=== PATIENT | female | born 1950 | race Caucasian/White ===

== ENCOUNTER 2024-06-23 13:27 | Emergency (ER) | payer OTHER ==
[2024-06-23 13:56] VITALS: BP 153/93; PULSE 96; RESP 16; TEMP 98.6; BMI 26.1
[2024-06-23 15:38] LABS: HEMATOCRIT 47.8 % (32.4-45.2); HEMOGLOBIN 15.8 G/dL (10.7-15.3); MCH 31.5 pg (25.7-33.7); MCHC 33.1 g/dl (32.0-36.0); MEAN CELL VOLUME 95.2 fl (80-96); MEAN PLT VOLUME 8.4 fl (7.5-11.1); PLATELET COUNT 192.6 10^3/uL (134-434); RBC 5.02 10^6/uL (3.60-5.2); WHITE BLOOD COUNT 5.5 10^3/uL (4.0-10.8)
[2024-06-23 15:43] LABS: PLATELET ESTIMATE ADEQUATE
[2024-06-23 15:45] LABS: ALBUMIN 4.6 g/dl (3.4-5.0); BILIRUBIN,TOTAL 0.4 mg/dl (0.2-1); CALCIUM 10.3 mg/dl (8.5-10.1); CREATININE 1.2 mg/dl (0.6-1.3); POTASSIUM 4.2 mmol/L (3.5-5.1); TOT PROT 7.7 g/dl (6.4-8.2)
[2024-06-23 15:58] LABS: ERYTHROCYTE SEDIMENTATION RATE 13 mm/hr (0-30)
[2024-06-23] MEDS ORDERED: DALBAVANCIN HCL 500 MG VIAL (RESTRICTED TO ID ONLY) IVPB ONE (16:44)
[2024-06-23] MEDS: DALBAVANCIN HCL 1,500 MG in DEXTROSE 5%-WATER - 500 ML IVPB ONE (17:00)
== END 2024-06-23 17:38 | disposition home or self-care (01) ==
LOC: FER 13:27
DX: M79.89 Other specified soft tissue disorders (principal); L03.116 Cellulitis of left lower limb
CPT/HCPCS: 36415; 73590-TC-LT-FY; 73610-TC-LT-FY; 73630-TC-LT; 80053; 85027; 85651; 86140; 93971-TC; 96374; 99285-25; J0875

== ENCOUNTER 2024-06-29 13:45 | Emergency (ER) | payer OTHER ==
[2024-06-29 13:57] VITALS: BP 148/88; PULSE 86; RESP 18; TEMP 98.4; BMI 26.1
== END 2024-06-29 14:40 | disposition home or self-care (01) ==
LOC: FER 13:45
DX: L29.9 Pruritus, unspecified (principal)
CPT/HCPCS: 99283-25

== ENCOUNTER 2024-06-30 16:58 | Emergency (ER) | payer OTHER ==
[2024-06-30 17:11] VITALS: BP 149/92; PULSE 100; RESP 16; TEMP 97.5; BMI 26.1
[2024-06-30 18:34] LABS: HEMATOCRIT 45.8 % (32.4-45.2); HEMOGLOBIN 15.5 G/dL (10.7-15.3); MCH 32.2 pg (25.7-33.7); MCHC 33.9 g/dl (32.0-36.0); MEAN CELL VOLUME 95.1 fl (80-96); MEAN PLT VOLUME 8.1 fl (7.5-11.1); RBC 4.82 10^6/uL (3.60-5.2); RDW 13.8 % (11.6-15.6); WHITE BLOOD COUNT 6.6 10^3/uL (4.0-10.8)
[2024-06-30] MEDS ORDERED: predniSONE 20 MG TABLET (UD) ONE (18:48)
[2024-06-30] MEDS: predniSONE 20 MG TABLET (UD) PO ONE (18:55)
[2024-06-30 19:04] LABS: ALBUMIN 4.6 g/dl (3.4-5.0); ALK PHOS 109 U/L (45-117); ANION GAP 8 mmol/L (4-13); BILIRUBIN,TOTAL 0.3 mg/dl (0.2-1); CALCIUM 10.1 mg/dl (8.5-10.1); CHLORIDE 102 mmol/L (98-107); CO2 30 mmol/L (21-32); CREATININE 1.1 mg/dl (0.6-1.3); GLUCOSE,RANDOM 105 mg/dl (74-106); SGOT/AST 24 U/L (15-37); SGPT/ALT 28 U/L (7-52); SODIUM 140 mmol/L (136-145); TOT PROT 7.8 g/dl (6.4-8.2)
[2024-06-30 19:14] LABS: PLATELET ESTIMATE ADEQUATE
[2024-06-30 19:26] LABS: ERYTHROCYTE SEDIMENTATION RATE 21 mm/hr (0-30)
[2024-06-30 20:45] LABS: HIV INTERPRETATION NEGATIVE (NEGATIVE)
== END 2024-06-30 19:09 | disposition left against medical advice (07) ==
LOC: FER 16:58
DX: R21 Rash and other nonspecific skin eruption (principal); M79.89 Other specified soft tissue disorders; M79.662 Pain in left lower leg
CPT/HCPCS: 36415; 80053; 85027; 85651; 86140; 86803; 87389; 99283-25

== ENCOUNTER 2024-07-01 10:12 | Emergency (ER) | payer OTHER ==
[2024-07-01 10:31] VITALS: BP 150/87; TEMP 97.5; BMI 26.1
[2024-07-01 13:37] VITALS: PULSE 88; RESP 18
== END 2024-07-01 13:35 | disposition home or self-care (01) ==
LOC: FER 10:12
DX: I87.312 Chronic venous hypertension (idiopathic) with ulcer of left lower extremity (principal); L97.829 Non-pressure chronic ulcer of other part of left lower leg with unspecified severity
CPT/HCPCS: 87070; 87205; 93971-TC; 99284-25